=== PATIENT | female | born 1960 | race Caucasian/White ===

== ENCOUNTER 2016-11-15 10:21 | Day surgery (SDC) | payer OTHER ==
[~2016-11-15] VITALS: Ht 157.5 cm; Wt 80.1 kg
[~2016-11-15 10:21] MED LIST: ACET500C5 PO; CIPR500T4 PO; FAMO20TA18 PO; IBUP800T25 PO; NITR-58 PO; ONDA4TAB8 PO
[2016-11-15 11:23] VITALS: Ht 157.5 cm; Wt 80.1 kg
[2016-11-15] MEDS ORDERED: ATORVASTATIN (11:26)
[2016-11-15] MEDS ORDERED: OMEPRAZOLE (11:26)
[2016-11-15] MEDS ORDERED: METFORMIN (11:26)
[2016-11-15 11:49] VITALS: BP 148/79; PULSE 75; RESP 16
[2016-11-15] MEDS ORDERED: FENTAnyl 50 MCG/ML VIAL ONE (12:28)
[2016-11-15] MEDS ORDERED: MIDAZOLAM 1 MG/ML 2 ML INJ ONE ×2 (12:28)
[2016-11-15 12:39] VITALS: BP 146/75; PULSE 66; RESP 12
--- NOTE | 2016-11-15 13:03 | GILP ---
DATE OF PROCEDURE: NAME OF PROCEDURE: Colonoscopy. SURGEON: Mariposa Paige MD PREOPERATIVE DIAGNOSIS: Screening colonoscopy. POSTOPERATIVE DIAGNOSES 1. Colonoscopy all the way to the cecum. 2. Internal hemorrhoids. 3. No colon neoplasm was identified. INDICATION FOR THE PROCEDURE: Ms. Tamiko Sykes is a 56-year-old female patient who was s cheduled for screening colonoscopy. The procedure and possible complications were well explained to the patient, she understood and cons ented to the procedure. DESCRIPTION OF PROCEDURE: Under the influence of fentanyl and Versed, the colonoscope was carefully introduced in the rectum and under direct vision, it was advanced all the way to the cecum. FINDINGS: The patient had internal hemorrhoids. No colon neoplasm was identified. She tolerated the procedure very well and there was no complication from the procedure. At the end of the procedures, she was awake with stable vital signs and she was discharged home to the care of her family. IMPRESSION: 1. Colonoscopy all the way to the cecum. 2. Internal hemorrhoids. 3. No colon neoplasm was identified. PLAN: Next screening colonoscopy in 10 years. Dictated By: MARIPOSA SPARROW/ANA LAURA Conf#: [id number] DID#: [id number] CC: MARIPOSA PAIGE MD;*EndCC*
== END 2016-11-15 18:24 | disposition home or self-care (01) ==
LOC: GIL 10:21
PROVIDERS: ATTEND Internal Medicine Gastroenterology
DX: Z12.11 Encounter for screening for malignant neoplasm of colon (principal); K64.8 Other hemorrhoids; E11.9 Type 2 diabetes mellitus without complications
CPT/HCPCS: 45378; 82962; J2250; J3010

== ENCOUNTER 2018-01-18 17:46 | Emergency (ER) | END 2018-01-19 00:28 | disposition home or self-care (01) ==

== ENCOUNTER 2018-03-09 22:16 | Inpatient (IN) | END 2018-03-11 13:00 | disposition home or self-care (01) | DRG 301 ==

== ENCOUNTER 2018-04-07 12:11 | Emergency (ER) | END 2018-04-07 15:19 | disposition home or self-care (01) ==